=== PATIENT | female | born 2005 | race African-American/Black ===

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

== ENCOUNTER 2023-04-15 15:18 | Emergency (ER) | payer MEDICAID ==
[~2023-04-15] VITALS: Ht 170.2 cm; Wt 72.7 kg
[2023-04-15 15:33] VITALS: BP 132/88; PULSE 62; RESP 18; TEMP 98.6
[2023-04-15 16:45] LABS: BASOPHILS % (AUTO) 0.1 % (0.0-2.0); EOSINOPHILS % (AUTO) 0 % (1.0-6.0); HEMATOCRIT 36.8 % (36-46); HEMOGLOBIN 11.9 g/dL (12.0-16.0); LYMPHOCYTES # (AUTO) 1.2 K/uL (1.0-4.8); LYMPHOCYTES % (AUTO) 9.4 % (22.0-44.0); MEAN CORPUSCULAR HGB CONC 32.3 G/dL (31.0-37.0); MEAN CORPUSCULAR VOLUME 77 fL (80-100); MONOCYTES % (AUTO) 7.6 % (2.0-9.0); NEUTROPHILS # (AUTO) 10.7 K/uL (1.8-7.7); NEUTROPHILS % (AUTO) 82.9 % (40.0-70.0); PLATELET COUNT (AUTO) 327 K/uL (150-450); RED BLOOD CELL COUNT(AUTO) 4.76 MIL/uL (4.00-5.20); RED CELL DISTRIBUTION WIDTH 14.4 % (11.5-14.5); WHITE BLOOD COUNT (AUTO) 12.9 K/uL (4.5-11.0)
[2023-04-15] MEDS ORDERED: METOCLOPRAMIDE HCL 5 MG/ML 2 ML VIAL IVP ONE (16:45)
[2023-04-15] MEDS ORDERED: SODIUM CHLORIDE 0.9% 1,000 ML IV ONE (16:45)
[2023-04-15 17:06] LABS: ALANINE AMINOTRANSFERASE 20 U/L (12-78); ALBUMIN 4.1 g/dL (3.4-5.0); ALKALINE PHOSPHATASE 63 U/L (46-116); ANION GAP 14 mmol/L (8-16); ASPARTATE AMINOTRANSFERASE 13 U/L (15-37); BILIRUBIN,TOTAL 0.6 mg/dL (0.1-1.0); CALCIUM, TOTAL 9.9 mg/dL (8.8-10.5); CARBON DIOXIDE 26 mmol/L (22-29); CHLORIDE 97 mmol/L (98-107); CREATININE 0.89 mg/dL (0.60-1.30); GLOMERULAR FILTR. RATE CALC > 60 mL/min (>60); GLUCOSE,RANDOM 123 mg/dL (70-110); HCG,QUANTITATIVE 1 mIU/mL (0-6); LIPASE 26 U/L (16-77); POTASSIUM 2.8 mmol/L (3.5-5.1); SODIUM SERUM 137 mmol/L (136-145); TOTAL PROTEIN, SERUM 8.4 g/dL (6.4-8.2); UREA NITROGEN, BLOOD 14 mg/dL (7-18)
[2023-04-15 17:10] LABS: RBC MORPHOLOGY COMMENT ABNORMAL RBC MORPH
[2023-04-15 17:37] LABS: APPEARANCE,URINE CLEAR (CLEAR); BILIRUBIN,URINE NEGATIVE (NEGATIVE); COLOR,URINE YELLOW (YELLOW); GLUCOSE, URINE (UA) NEGATIVE (NEGATIVE); LEUKOCYTE ESTERASE ,URINE TRACE (NEGATIVE); NITRATE,URINE NEGATIVE (NEGATIVE); OCCULT BLOOD,URINE MODERATE (NEGATIVE); PH,URINE 7.5 (5.0-8.0); PROTEIN,URINE 100-200,SEE CONFIRM mg/dL (NEGATIVE); SPECIFIC GRAVITIY, URINE 1.036 (1.003-1.030); UROBILINOGEN,URINE <=1.0 mg/dL (<=1.0)
[2023-04-15 17:59] LABS: SQUAMOUS EPITHELIAL CELL,UR Few /LPF (None Seen); SULFOSALICYLIC ACID,URINE Negative (Negative)
[2023-04-15] MEDS ORDERED: POTASSIUM CHL 10 MEQ/WATER 50 ML IV SCH (18:00)
[2023-04-15 18:02] LABS: BACTERIA,URINE None Seen /HPF (None Seen); RBC,URINE 0-2 /HPF (0-2); WBC,URINE 0-2 /HPF (0-5)
== END 2023-04-15 19:00 | disposition left against medical advice (07) ==
LOC: EMS 15:18
DX: R10.9 Unspecified abdominal pain (principal); Z53.21 Procedure and treatment not carried out due to patient leaving prior to being seen by health care provider
CPT/HCPCS: 99281; 80053; 81001; 83690; 84702; 85025; 36415; J2765; J3480; J7030; 81002

== ENCOUNTER 2024-06-04 20:48 | Emergency (ER) | payer MEDICAID, OTHER ==
[~2024-06-04] VITALS: Ht 170.2 cm; Wt 63.6 kg
[2024-06-04 21:41] VITALS: TEMP 98.5
[2024-06-04 21:55] VITALS: BP 124/78; PULSE 75; RESP 18; O2SAT 100
[2024-06-04] MEDS ORDERED: CIPR500T10 PO (22:47)
[2024-06-04] MEDS ORDERED: DOXY-354 PO (22:47)
[2024-06-04] MEDS: CIPROFLOXACIN HCL 250 MG TABLET PO ONE (22:48)
[2024-06-04] MEDS: BACITRACIN 28 GM OINTMENT TP ONE (22:48)
[2024-06-04] MEDS: DOXYCYCLINE HYCLATE 100 MG TABLET PO ONE (22:48)
[2024-06-04] MEDS: PERTUSS(ACELL),DIPH,TET/PF 0.5 ML SYRINGE [ADULT] IM. ONE (22:53)
== END 2024-06-04 23:02 | disposition home or self-care (01) ==
LOC: EMS 20:48
DX: S91.332A Puncture wound without foreign body, left foot, initial encounter (principal); F12.90 Cannabis use, unspecified, uncomplicated; W45.0XXA Nail entering through skin, initial encounter; Y93.89 Activity, other specified; Y92.89 Other specified places as the place of occurrence of the external cause; Y99.8 Other external cause status
CPT/HCPCS: 90471; 90715; 99284